=== PATIENT | male | born 2005 | race Hispanic/Latino ===

== ENCOUNTER 2024-10-06 10:26 | Emergency (ER) | payer OTHER ==
[~2024-10-06] VITALS: Ht 188 cm; Wt 63.5 kg
--- NOTE | 2024-10-06 10:58 | ERN ---
General Chief Complaint: FOOT INJURY/PAIN Stated Complaint: RT FOOT INJURY Time Seen by MD: 10:31 Time Seen by Midlevel: 10:31 Source: patient History of Present Illness Initial Comments Patient is a 19-year-old male with no significant past medical history presenting to the emergency department for evaluation of a right foot injury. Patient states he got his over by a vehicle. This occurred approximately 30 minutes prior to arrival. Patient has been able to ambulate but does report pain with weight-bearing. Denies any other injury. Allergies: Coded Allergies: No Known Allergies (Unverified Allergy, Unknown, 10/06/24) Past Medical History Past Medical History: No Pertinent History Past Surgical History: None ROS Dictation CONSTITUTIONAL: Negative except for HPI HEAD/FACE: Negative except for HPI EENT: Negative except for HPI RESPIRATORY: Negative except for HPI GASTROINTESTINAL/ABDOMINAL: Negative except for HPI GENITOURINARY: Negative except for HPI MUSCULOSKELETAL: Negative except for HPI INTEGUMENTARY: Negative except for HPI NEUROLOGICAL/PSYCH: Negative except for HPI HEMATOLOGIC/LYMPHATIC: Negative except for HPI All Systems Negative, Except as noted above. 13 point review of systems assessed and all negative except for above. Physical Exam Physical Exam Dictation PHYSICAL EXAM: GENERAL: alert,, awake oriented x 3 HEENT: EOMI, Sclera non icteric, moist mucosa NECK: Supple, no JVD, trachea midline LUNGS: Clear breath sounds bilaterally. No wheezes HEART: Regular rate and rhythm. Normal S1 and S2, without murmurs ABD: Abdomen soft, nontender. Bowel sounds present EXT: No clubbing or cyanosis, NEURO: Alert and oriented to person, follows commands MDM MDM: Patient is a 19-year-old male with no significant past medical history presenting to the emergency department for evaluation of a right foot injury. Patient states he got his over by a vehicle. This occurred approximately 30 minutes prior to arrival. Patient has been able to ambulate but does report pain with weight-bearing. Denies any other injury. On physical examination the patient is in no acute distress. There is some mild tenderness overlying the metatarsals of the right foot. The patient is ambulatory without assistance. An x-ray of the right foot does not reveal any acute fracture dislocation. Patient will need to follow up outpatient in 1-2 weeks if his symptoms persist for a repeat x-ray. I recommend that he being nonweightbearing for the next couple of days. He may take Tylenol and Motrin for pain. Patient was stable for discharge Differential diagnosis: Fracture, contusion, dislocation There are no social concerns with this patient. Prescription drug management Prescriptions will include: None Medical management and examination interpretation discussions were had by me with other qualified healthcare professionals as indicated for the patient's care. ED Course Orders Procedure Category Date Status Time Foot Comp 3+Vws Rt RAD 10/06/24 Logged 10:32 Vital Signs Date Time Temp Pulse Resp B/P (MAP) Pulse Ox O2 Delivery O2 Flow Rate FiO2 10/06/24 10:28 96.4 81 20 147/86 98 Room Air DX & DISP Disposition: Discharge Departure Impression: Primary Impression: Contusion of right foot Condition: Stable Additional Instructions: Your right foot x-ray does not show any evidence of a fracture or dislocation. You may take Tylenol and Motrin for pain. Follow up with your primary care doctor in 1-2 weeks if your pain persists for a repeat x-ray. Referrals: WANYD BARRY (PCP) I have reviewed the case, and I agree with, Diagnosis and Plan I performed the substantive portion of the visit. I have reviewed and personally made and approve the management plan that is documented in the note by myself or the TRISTAN. I acknowledge for responsibility for the patient's management plan. JACK TORRES Oct 06, 2024 10:58
[2024-10-06 11:05] VITALS: BP 139/83; PULSE 80; RESP 18; TEMP 98; O2SAT 98
--- NOTE | 2024-10-06 11:11 | HMCIMG ---
FOOT COMP 3+VWS RT REASON: PAIN AND INJURY TECHNIQUE: 3 views were obtained. FINDINGS: There is no evidence of fracture or dislocation. There is no joint effusion. The soft tissues appear unremarkable. There is no evidence of a radiopaque foreign body. IMPRESSION: No acute findings.
== END 2024-10-06 11:06 | disposition home or self-care (01) ==
LOC: EDH 10:26
DX: S90.31XA Contusion of right foot, initial encounter (principal); X58.XXXA Exposure to other specified factors, initial encounter; Y93.89 Activity, other specified; Y92.89 Other specified places as the place of occurrence of the external cause; Y99.8 Other external cause status
CPT/HCPCS: 73630; 99283